=== PATIENT | male | born 1995 | race African-American/Black ===

== ENCOUNTER 2023-11-30 22:08 | Emergency (ER) | payer SELFPAY ==
[~2023-11-30] VITALS: Ht 175.3 cm; Wt 75.0 kg
[2023-11-30 22:11] VITALS: BP 116/50; PULSE 74; RESP 18; TEMP 99.1; O2SAT 100
[2023-12-01] MEDS ORDERED: DIPH1TAB24 MT (00:19)
[2023-12-01] MEDS ORDERED: ONDA4TAB50 MT (00:19)
[2023-12-01] MEDS ORDERED: TOPUD MT (00:19)
== END 2023-12-01 00:35 | disposition home or self-care (01) ==
LOC: ER 22:08
DX: B34.9 Viral infection, unspecified (principal)
CPT/HCPCS: 99283

== ENCOUNTER 2023-12-25 18:52 | Emergency (ER) | payer SELFPAY ==
[~2023-12-25] VITALS: Ht 172.7 cm; Wt 69.0 kg
[~2023-12-25 18:52] MED LIST: DIPH1TAB24 MT; ONDA4TAB50 MT; TOPUD MT
[2023-12-25 19:02] VITALS: BP 139/84; PULSE 85; O2SAT 98
[2023-12-25] MEDS: AZITHROMYCIN 500 MG TABLET PO ONE (23:32)
[2023-12-26 00:26] LABS: BASOPHILS % 0.6 % (0.0-2.0); EOSINOPHILS % 0.3 % (0.0-5.0); HEMATOCRIT. 41.2 % (42.0-52.0); HEMOGLOBIN. 13.7 g/dL (14.0-18.0); LYMPHOCYTES % 40.3 % (20.0-50.0); MEAN CORPUSCULAR HEMOGLOBIN 30.9 pg (28.0-32.0); MEAN CORPUSCULAR HGB CONC 33.3 g/dL (31.0-37.0); MEAN CORPUSCULAR VOLUME 92.8 fL (80.0-94.0); MEAN PLATELET VOLUME 8.8 fl (7.4-10.4); MONOCYTES % 8.6 % (2.0-8.0); NEUTROPHILS % 50.2 % (40.0-76.0); PLATELET 211 x1000/uL (130-400); RED BLOOD CELL COUNT 4.43 mill/uL (4.7-6.1); RED CELL DISTRIBUTION WIDTH 15.4 % (11.6-14.6); WHITE BLOOD COUNT 6.6 x1000/uL (4.5-11.0)
[2023-12-26 00:32] LABS: DIFFERENTIAL COMMENT 1
[2023-12-26 00:38] LABS: CHLORIDE 97 mEq/L (98-107); POTASSIUM 3.9 mEq/L (3.5-5.1); SODIUM 130 mEq/L (136-145)
[2023-12-26 00:39] LABS: CALCIUM 9.6 mg/dL (8.7-10.4); CARBON DIOXIDE 21 mEq/L (21-32)
[2023-12-26 00:44] LABS: CREATININE 1.5 mg/dL (0.6-1.3); GLUCOSE 104 mg/dL (70-105); UREA NITROGEN BLOOD 27 mg/dL (9-23)
[2023-12-26] MEDS ORDERED: AZIT250T12 MT (00:45)
[2023-12-26 00:46] LABS: ALANINE AMINOTRANSFERASE 138 IU/L (10-49); ALBUMIN 3.8 g/dL (3.2-4.8); ASPARTATE AMINOTRANSFERASE 78 IU/L (<34); BILIRUBIN TOTAL 2.7 mg/dL (0.1-1.0); PROTEIN TOTAL 7.1 g/dL (6.0-8.3)
== END 2023-12-26 00:57 | disposition home or self-care (01) ==
LOC: EDBD 18:52 → ER 18:52
DX: J18.9 Pneumonia, unspecified organism (principal); R05.9 Cough, unspecified; Z20.822 Contact with and (suspected) exposure to COVID-19
CPT/HCPCS: 36415; 71045; 80053; 83880; 84145; 85025; 87426; 93005; 99285

== ENCOUNTER 2024-07-16 11:31 | Emergency (ER) | payer MEDICAID ==
[~2024-07-16] VITALS: Ht 175.3 cm; Wt 70.0 kg
[~2024-07-16 11:31] MED LIST changes: +AZIT250T12 MT; +DIPH-1091 MT; -DIPH1TAB24 MT
[2024-07-16 11:34] VITALS: BP 0/0; PULSE 0; RESP 26; O2SAT 90
== END 2024-07-16 11:42 ==
LOC: ER 11:31
DX: I46.9 Cardiac arrest, cause unspecified (principal); Z98.890 Other specified postprocedural states; Z79.899 Other long term (current) drug therapy
CPT/HCPCS: 31500; 92950; 99285